=== PATIENT | male | born 1970 | race African-American/Black ===

== ENCOUNTER 2021-10-19 07:32 | Emergency (ER) | payer MEDICAID, MEDICARE, OTHER ==
[~2021-10-19] VITALS: Ht 167.6 cm; Wt 78.0 kg
[~2021-10-19 07:32] MED LIST: DEPAKOTE; SEROQUEL
[2021-10-19] MEDS ORDERED: IBUP-466 MT (08:50)
[2021-10-19 08:56] VITALS: BP 134/87
[2021-10-19] MEDS ORDERED: IBUPROFEN 400MG TABLET PO ONE (09:00)
== END 2021-10-19 09:00 | disposition home or self-care (01) ==
LOC: ER 07:32
DX: J06.9 Acute upper respiratory infection, unspecified (principal); E78.00 Pure hypercholesterolemia, unspecified; Z20.822 Contact with and (suspected) exposure to COVID-19
CPT/HCPCS: 87426; 87804; 99283; C9803